=== PATIENT | male | born 1960 | race Caucasian/White ===

== ENCOUNTER 2017-05-15 10:58 | Emergency (ER) | payer BC ==
[2017-05-15 11:49] VITALS: BP 122/68; PULSE 77; RESP 19; TEMP 97.8; O2SAT 97; BMI 23.6
--- NOTE | 2017-05-15 11:49 | ED PDOC ---
Arrival/HPI <Mina Saunders - Last Filed: 05/15/17 12:51> - General Historian: Patient - History of Present Illness Time/Duration: > week Symptom Onset: Gradual Symptom Course: Worsening Quality: Stabbing <Medina Hinson - Last Filed: 05/15/17 13:51> - General Time Seen by Provider: 05/15/17 11:33 - History of Present Illness Narrative History of Present Illness (Text): 05/15/17 11:47 56 year old male with past medical history of chronic back pain and HLD presents for left sided low back pain that began about 10 days ago. Patient states that he was gardening when he noticed the pain. Pain improved slightly over the ten days but for past 2 days has been worsening. Patient used diazepam and ibuprofen 800 mg at home that he was prescribed for back pain in the past. Patient states he has slight radiation of pain down to his posterior left thigh. Denies having any abd pain, urinary or bowel incontinence, numbness or tingling in extremities, hematuria, dysuria. (Medina Hinson) Past Medical History - Provider Review Nursing Documentation Reviewed: Yes - Travel History Have you recently traveled outside [place] w/in the past 3 mons?: No - Infectious Disease Hx of Infectious Diseases: None - Cardiac Hx Cardiac Disorders: Yes - Pulmonary Hx Respiratory Disorders: No - Neurological Hx Neurological Disorder: No - HEENT Hx HEENT Disorder: No - Renal Hx Renal Disorder: No - Endocrine/Metabolic Hx Endocrine Disorders: No - Hematological/Oncological Hx Blood Disorders: No - Integumentary Hx Dermatological Disorder: No - Musculoskeletal/Rheumatological Hx Musculoskeletal Disorders: No - Gastrointestinal Hx Gastrointestinal Disorders: No - Genitourinary/Gynecological Hx Genitourinary Disorders: No - Psychiatric Hx Substance Use: No - Anesthesia Hx Anesthesia: No <Medina Hinson - Last Filed: 05/15/17 13:51> Family/Social History - Physician Review Nursing Documentation Reviewed: Yes Family/Social History: Unknown Family HX Smoking Status: Never Smoked Hx Alcohol Use: No Hx Substance Use: No <Medina Hinson - Last Filed: 05/15/17 13:51> Allergies/Home Meds <Mina Saunders - Last Filed: 05/15/17 12:51> <Medina Hinson - Last Filed: 05/15/17 13:51> Allergies/Adverse Reactions: Allergies No Known Allergies Allergy (Verified 05/15/17 11:36) Home Medications: Home Meds Medication Instructions Recorded Confirmed Diazepam [Valium] 10 mg PO PRN PRN 05/15/17 05/15/17 Rosuvastatin Calcium [Crestor] 5 mg PO DAILY 05/15/17 05/15/17 Review of Systems - Review of Systems Constitutional: Normal. absent: Fatigue, Fevers Eyes: Normal. absent: Photophobia ENT: Normal. absent: Rhinorrhea, Sinus Congestion Respiratory: Normal. absent: SOB, Cough, Sputum, Wheezing Cardiovascular: Normal. absent: Chest Pain, Palpitations, Edema, Calf Pain Gastrointestinal: Normal. absent: Abdominal Pain, Diarrhea, Nausea, Vomiting Genitourinary Male: Normal. absent: Dysuria, Frequency, Hematuria, Urinary Output Changes Musculoskeletal: Back Pain (left low back ). absent: Neck Pain, Joint Swelling Skin: Normal. absent: Rash, Pruritis, Skin Lesions, Laceration Neurological: Normal. absent: Headache, Dizziness Endocrine: Normal. absent: Diaphoresis, Polyuria Hemo/Lymphatic: Normal. absent: Adenopathy Psychiatric: Normal. absent: Anxiety, Depression <Karim,Medina - Last Filed: 05/15/17 13:51> Physical Exam Vital Signs Reviewed: Yes Temperature: Afebrile Blood Pressure: Normal Pulse: Regular Respiratory Rate: Normal Appearance: Positive for: Well-Appearing, Non-Toxic, Comfortable Pain Distress: Mild Mental Status: Positive for: Alert and Oriented X 3 - Systems Exam Head: Present: Atraumatic, Normocephalic Pupils: Present: PERRL Extroacular Muscles: Present: EOMI Mouth: Present: Moist Mucous Membranes Respiratory/Chest: Present: Clear to Auscultation, Good Air Exchange. No: Respiratory Distress, Accessory Muscle Use, Wheezes, Rales, Rhonchi Cardiovascular: Present: Regular Rate and Rhythm, Normal S1, S2. No: Murmurs, Rub, Gallop, Muffled Abdomen: Present: Normal Bowel Sounds. No: Tenderness, Distention, Peritoneal Signs, Rebound, Guarding Upper Extremity: Present: Normal Inspection, NORMAL PULSES. No: Edema Lower Extremity: Present: NORMAL PULSES. No: Edema, CALF TENDERNESS Neurological: Present: GCS=15, CN II-XII Intact, Speech Normal, Motor Func Grossly Intact, Normal Sensory Function, Norm Deep Tendon Reflexes, Normal 2Pt Descrimination Skin: Present: Warm, Dry, Normal Color. No: Rashes Psychiatric: Present: Alert, Oriented x 3, Normal Insight, Normal Concentration <Medina Hinson - Last Filed: 05/15/17 13:51> Vital Signs Temp Pulse Resp BP Pulse Ox 05/15/17 11:35 97.8 F 77 19 122/68 97 Medical Decision Making <Mina Saunders - Last Filed: 05/15/17 12:51> - Lab Interpretations I have reviewed the lab results: Yes - RAD Interpretation Electromechanical Technician: Radiologist <Medina Hinson - Last Filed: 05/15/17 13:51> ED Course and Treatment: 05/15/17 12:53 Patient seen and examined with resident with noted history with low back pain that is radiating to the leg, consistent with lumbar radiculopathy. There is loss of disc space at L3-L4, L4-L5, and L5-S1 on the x-ray but no acute findings. Urinalysis is negative and no abdominal or testicular/groin pain. Will be ok for d/c to continue on ibuprofen and diazepam, which he is already on and to use tramadol and lidoderm patches for analgesia. (Mina Saunders) 05/15/17 12:06 56 year old male presents for low back pain Will check thoracolumbar x ray 2 view and UA Patient will be given toradol and tramadol for pain (Karim,Medina) - Lab Interpretations Narrative Lab Interpretation (Text): 05/15/17 12:13 normal UA (Karim,Medina) Lab Results: Lab Results 05/15/17 12:00: Urine Color Yellow, Urine Appearance Clear, Urine pH 6.0, Ur Specific [place] 1.015, Urine Protein Negative, Urine Glucose (UA) Negative, Urine Ketones Negative, Urine Blood Negative, Urine Nitrate Negative, Urine Bilirubin Negative, Urine Urobilinogen 0.2, Ur Leukocyte Esterase Negative - RAD Interpretation Narrative RAD Interpretations (Text): 05/15/17 13:37 normal lumbar x ray (Karim,Medina) Radiology Orders: 05/15/17 12:02 LS SPINE AP/LAT [RAD] Stat - Medication Orders Current Medication Orders: Discontinued Medications Ketorolac Tromethamine (Toradol) 30 mg IM STAT STA Stop: 05/15/17 11:51 Last Admin: 05/15/17 12:07 Dose: 30 mg Tramadol HCl (Ultram) 100 mg PO STAT STA Stop: 05/15/17 11:51 Last Admin: 05/15/17 12:06 Dose: 100 mg - PA / NETWORK CONTROLLER / Resident Statement / has reviewed & agrees with the documentation as recorded. / has examined the patient and agrees with the treatment plan. <Mina Saunders - Last Filed: 05/15/17 12:51> Disposition/Present on Arrival - Disposition Have Diagnosis and Disposition been Completed?: Yes Disposition Time: 12:50 <Mina Saunders - Last Filed: 05/15/17 12:51> - Present on Arrival Any Indicators Present on Arrival: No History of DVT/PE: No History of Uncontrolled Diabetes: No Urinary Catheter: No History of Decub. Ulcer: No History Surgical Site Infection Following: None - Disposition Have Diagnosis and Disposition been Completed?: Yes Patient Plan: Discharge <Medina Hinson - Last Filed: 05/15/17 13:51> - Disposition Diagnosis: Lumbar radiculopathy Disposition: HOME/ ROUTINE Condition: GOOD Additional Instructions: Avoid any heavy lifting. You may continue the ibuprofen and diazepam as prescribed. Use the lidoderm patches and tramadol as prescribed. Follow up with your primary care doctor. Return to the emergency department if any new concerning symptoms. Prescriptions: Lidocaine 5% [Lidoderm] 1 ea TD DAILY #10 patch Tramadol HCl/Acetaminophen [Ultracet Tablet] 1 - 2 tab PO Q8H PRN #20 tablet PRN Reason: Pain, Severe (8-10) Referrals: Nicole Odonnell MD [Staff Provider] - Follow up with primary Forms: [employer] (Faroese)
[2017-05-15 12:11] LABS: URINE BILIRUBIN NEGATIVE (NEGATIVE); URINE BLOOD NEGATIVE (NEGATIVE); URINE GLUCOSE (UA) NEGATIVE (NEGATIVE); URINE KETONE NEGATIVE (NEGATIVE); URINE LEUKOCYTE ESTERASE NEGATIVE Leu/uL (NEGATIVE); URINE PROTEIN NEGATIVE mg/dL (<30 mg/dL); URINE UROBILINOGEN 0.2 E.U./dL (<1 E.U./dL)
[2017-05-15 12:12] LABS: URINE APPEARANCE CLEAR (CLEAR); URINE COLOR YELLOW (YELLOW)
--- NOTE | 2017-05-15 13:20 | RAD ---
PROCEDURE: Radiographs of the Lumbar Spine. HISTORY: BACK PAIN COMPARISON: No prior. FINDINGS: BONES: Normal alignment. No listhesis. No fracture. DISC SPACES: Unremarkable. OTHER FINDINGS: None. IMPRESSION: Unremarkable radiographs of the lumbar spine.
== END 2017-05-15 12:59 | disposition home or self-care (01) ==
LOC: ED 10:58
DX: M54.16 Radiculopathy, lumbar region (principal); E78.5 Hyperlipidemia, unspecified
CPT/HCPCS: 72100; 81003; 96372; 99284; J1885